=== PATIENT | female | born 1955 ===

== ENCOUNTER 2022-09-13 07:15 | Inpatient (IN) | payer OTHER ==
[~2022-09-13] VITALS: Ht 152.4 cm; Wt 76.7 kg
[2022-09-18] MEDS ORDERED: CARDIZEM120 MG PO (09:30)
[2022-09-18] MEDS ORDERED: METFORMIN HCL500 M4 PO (09:30)
[2022-09-18] MEDS ORDERED: GABAPENTIN800 M1 PO (09:30)
== END 2022-09-22 09:48 | disposition home or self-care (01) | DRG 743 ==
LOC: O/R 09-20 06:27 → SURG 09-20 07:00 → OB/GYN 09-20 13:27
PROVIDERS: ADMIT Obstetrics & Gynecology; ATTEND Obstetrics & Gynecology
PROC: 0UT70ZZ Resection of Bilateral Fallopian Tubes, Open Approach (ICD-10-PCS; 2022-09-20)
PROC: 0UT20ZZ Resection of Bilateral Ovaries, Open Approach (ICD-10-PCS; 2022-09-20)
PROC: 0DNU0ZZ Release Omentum, Open Approach (ICD-10-PCS; 2022-09-20)
PROC: 0TNB0ZZ Release Bladder, Open Approach (ICD-10-PCS; 2022-09-20)
PROC: 0DN80ZZ Release Small Intestine, Open Approach (ICD-10-PCS; 2022-09-20)
PROC: 0UT90ZL Resection of Uterus, Supracervical, Open Approach (ICD-10-PCS; principal; 2022-09-20 07:00)
DX: D25.9 Leiomyoma of uterus, unspecified (principal); N73.6 Female pelvic peritoneal adhesions (postinfective); N84.0 Polyp of corpus uteri; Z20.822 Contact with and (suspected) exposure to COVID-19